=== PATIENT | female | born 1935 | race Asian ===

== ENCOUNTER 2021-07-29 14:12 | Inpatient (IN) | payer MEDICARE, OTHER ==
[~2021-07-29] VITALS: Ht 162.6 cm; Wt 39.0 kg
[2021-07-29 18:50] VITALS: BP 110/60
[2021-07-29] MEDS ORDERED: QUEtiapine FUMARATE 25 MG TABLET PO SCH (21:00)
[2021-07-29 21:06] VITALS: BP 127/70
[2021-07-29] MEDS: METOPROLOL TARTRATE 50 MG TABLET PO SCH (21:13)
[2021-07-29] MEDS: MIRTAZAPINE 15 MG TABLET PO SCH (21:13)
[2021-07-29] MEDS: DORZOLAMIDE/TIMOLOL 2-0.5% [22.3-6.8MG/ML] 10 ML OPHTHALMIC SOLUTION OU SCH (21:13)
[2021-07-29] MEDS: ATORVASTATIN CALCIUM 40 MG TABLET PO SCH (21:13)
[2021-07-29] MEDS: DOCUSATE SODIUM 100 MG CAPSULE PO SCH (21:13)
[2021-07-29] MEDS: SENNA 187 MG TABLET PO SCH (21:13)
[2021-07-29] MEDS: ETHYL ALCOHOL 62% ANTISEPTIC NASAL INHALANT 0.6 ML AMPUL NASAL SCH (21:14)
[2021-07-29] MEDS: DOXYCYCLINE HYCLATE 100 MG TABLET PO SCH (21:14)
[2021-07-29] MEDS: BRIMONIDINE/TIMOLOL 0.2-0.5% 5 ML OPHTHALMIC SOLUTION OU SCH (21:21)
[2021-07-29 23:30] VITALS: BP 93/61
[2021-07-30 07:20] LABS: BASOPHILS % (AUTO) 0.8 % (0.0-2.0); EOSINOPHILS % (AUTO) 9.1 % (1.0-6.0); HEMATOCRIT 42.2 % (36-46); LYMPHOCYTES # (AUTO) 0.7 K/uL (1.0-4.8); LYMPHOCYTES % (AUTO) 9.6 % (22.0-44.0); MEAN CORPUSCULAR HEMOGLOBIN 29.2 pg (26.0-34.0); MEAN CORPUSCULAR HGB CONC 33.2 G/dL (31.0-37.0); MEAN CORPUSCULAR VOLUME 88 fL (80-100); MONOCYTES # (AUTO) 0.6 K/uL (0.1-1.0); MONOCYTES % (AUTO) 8.4 % (2.0-9.0); NEUTROPHILS # (AUTO) 5.1 K/uL (1.8-7.7); NEUTROPHILS % (AUTO) 72.1 % (40.0-70.0); PLATELET COUNT (AUTO) 357 K/uL (150-450); RED BLOOD CELL COUNT(AUTO) 4.79 MIL/uL (4.00-5.20)
[2021-07-30 07:31] LABS: ALBUMIN 2.8 g/dL (3.4-5.0); BILIRUBIN,TOTAL 0.7 mg/dL (0.1-1.0); CREATININE 1.16 mg/dL (0.60-1.30); POTASSIUM 4.4 mmol/L (3.5-5.1); TOTAL PROTEIN, SERUM 6.5 g/dL (6.4-8.2)
[2021-07-30] MEDS: ASPIRIN 81 MG CHEWABLE TABLET PO SCH (07:41)
[2021-07-30 08:05] VITALS: BP 103/63
[2021-07-30] MEDS: DOCUSATE SODIUM 100 MG CAPSULE PO SCH ×2 (08:33→20:14)
[2021-07-30] MEDS: DORZOLAMIDE/TIMOLOL 2-0.5% [22.3-6.8MG/ML] 10 ML OPHTHALMIC SOLUTION OU SCH ×2 (08:33→20:14)
[2021-07-30] MEDS: METOPROLOL TARTRATE 50 MG TABLET PO SCH ×2 (08:33→20:15)
[2021-07-30] MEDS: BRIMONIDINE/TIMOLOL 0.2-0.5% 5 ML OPHTHALMIC SOLUTION OU SCH ×2 (08:33→20:19)
[2021-07-30] MEDS: ETHYL ALCOHOL 62% ANTISEPTIC NASAL INHALANT 0.6 ML AMPUL NASAL SCH ×2 (08:33→20:15)
[2021-07-30] MEDS: CLOPIDOGREL BISULFATE 75 MG TABLET PO SCH (08:33)
[2021-07-30] MEDS: DOXYCYCLINE HYCLATE 100 MG TABLET PO SCH ×2 (08:34→20:15)
[2021-07-30] MEDS: AmLODIPine BESYLATE 5 MG TABLET PO SCH (08:34)
[2021-07-30] MEDS: ACETAMINOPHEN 325 MG TABLET PO PRN (11:37)
[2021-07-30 15:10] VITALS: BP 112/57
[2021-07-30 20:14] VITALS: BP 123/66
[2021-07-30] MEDS: SENNA 187 MG TABLET PO SCH (20:15)
[2021-07-30] MEDS: ATORVASTATIN CALCIUM 40 MG TABLET PO SCH (20:15)
[2021-07-30] MEDS: MIRTAZAPINE 15 MG TABLET PO SCH (20:15)
[2021-07-30] MEDS: MELATONIN 3 MG TABLET PO PRN (20:17)
[2021-07-31 00:45] VITALS: BP 134/67
[2021-07-31 08:01] VITALS: BP 139/60
[2021-07-31] MEDS: BRIMONIDINE/TIMOLOL 0.2-0.5% 5 ML OPHTHALMIC SOLUTION OU SCH ×3 (08:10→21:04)
[2021-07-31] MEDS: DORZOLAMIDE/TIMOLOL 2-0.5% [22.3-6.8MG/ML] 10 ML OPHTHALMIC SOLUTION OU SCH ×2 (08:10→20:55)
[2021-07-31] MEDS: AmLODIPine BESYLATE 5 MG TABLET PO SCH (08:10)
[2021-07-31] MEDS: DOCUSATE SODIUM 100 MG CAPSULE PO SCH ×2 (08:10→20:55)
[2021-07-31] MEDS: DOXYCYCLINE HYCLATE 100 MG TABLET PO SCH ×2 (08:10→20:55)
[2021-07-31] MEDS: ASPIRIN 81 MG CHEWABLE TABLET PO SCH (08:10)
[2021-07-31] MEDS: METOPROLOL TARTRATE 50 MG TABLET PO SCH ×2 (08:10→20:55)
[2021-07-31] MEDS: CLOPIDOGREL BISULFATE 75 MG TABLET PO SCH (08:10)
[2021-07-31] MEDS: ETHYL ALCOHOL 62% ANTISEPTIC NASAL INHALANT 0.6 ML AMPUL NASAL SCH ×2 (08:50→20:56)
[2021-07-31 16:18] VITALS: BP 131/55
[2021-07-31 20:45] VITALS: BP 119/71
[2021-07-31] MEDS: HEPARIN SODIUM,PORCINE 5,000 UNITS/ML VIAL SQ SCH (20:55)
[2021-07-31] MEDS: MIRTAZAPINE 15 MG TABLET PO SCH (20:55)
[2021-07-31] MEDS: MELATONIN 3 MG TABLET PO PRN (20:56)
[2021-07-31] MEDS: ATORVASTATIN CALCIUM 40 MG TABLET PO SCH (20:56)
[2021-07-31] MEDS: SENNA 187 MG TABLET PO SCH (20:56)
[2021-08-01 03:00] VITALS: BP 136/67
[2021-08-01 09:00] VITALS: BP 123/59
[2021-08-01] MEDS: ETHYL ALCOHOL 62% ANTISEPTIC NASAL INHALANT 0.6 ML AMPUL NASAL SCH ×2 (09:55→20:18)
[2021-08-01] MEDS: DOXYCYCLINE HYCLATE 100 MG TABLET PO SCH ×2 (09:56→20:17)
[2021-08-01] MEDS: ASPIRIN 81 MG CHEWABLE TABLET PO SCH (09:56)
[2021-08-01] MEDS: METOPROLOL TARTRATE 50 MG TABLET PO SCH ×2 (09:56→20:17)
[2021-08-01] MEDS: CLOPIDOGREL BISULFATE 75 MG TABLET PO SCH (09:56)
[2021-08-01] MEDS: AmLODIPine BESYLATE 5 MG TABLET PO SCH (09:56)
[2021-08-01] MEDS: HEPARIN SODIUM,PORCINE 5,000 UNITS/ML VIAL SQ SCH ×2 (09:57→20:17)
[2021-08-01] MEDS: DOCUSATE SODIUM 100 MG CAPSULE PO SCH ×2 (09:57→20:17)
[2021-08-01] MEDS: DORZOLAMIDE/TIMOLOL 2-0.5% [22.3-6.8MG/ML] 10 ML OPHTHALMIC SOLUTION OU SCH ×2 (10:07→20:18)
[2021-08-01] MEDS: BRIMONIDINE/TIMOLOL 0.2-0.5% 5 ML OPHTHALMIC SOLUTION OU SCH ×2 (10:07→20:18)
[2021-08-01] MEDS: MECLIZINE HCL 25 MG TABLET PO PRN (11:49)
[2021-08-01] MEDS: ACETAMINOPHEN 325 MG TABLET PO PRN (13:36)
[2021-08-01 16:30] VITALS: BP 118/63
[2021-08-01 20:10] VITALS: BP 112/64
[2021-08-01] MEDS: ATORVASTATIN CALCIUM 40 MG TABLET PO SCH (20:17)
[2021-08-01] MEDS: MIRTAZAPINE 15 MG TABLET PO SCH (20:17)
[2021-08-01] MEDS: SENNA 187 MG TABLET PO SCH (20:18)
[2021-08-02 02:00] VITALS: BP 116/67
[2021-08-02] MEDS: ASPIRIN 81 MG CHEWABLE TABLET PO SCH (08:28)
[2021-08-02] MEDS: CLOPIDOGREL BISULFATE 75 MG TABLET PO SCH (08:29)
[2021-08-02] MEDS: ETHYL ALCOHOL 62% ANTISEPTIC NASAL INHALANT 0.6 ML AMPUL NASAL SCH ×2 (08:29→20:36)
[2021-08-02] MEDS: AmLODIPine BESYLATE 5 MG TABLET PO SCH (08:29)
[2021-08-02] MEDS: DOCUSATE SODIUM 100 MG CAPSULE PO SCH ×2 (08:30→20:36)
[2021-08-02] MEDS: HEPARIN SODIUM,PORCINE 5,000 UNITS/ML VIAL SQ SCH ×2 (08:30→20:36)
[2021-08-02] MEDS: BRIMONIDINE/TIMOLOL 0.2-0.5% 5 ML OPHTHALMIC SOLUTION OU SCH ×2 (08:30→20:36)
[2021-08-02] MEDS: DORZOLAMIDE/TIMOLOL 2-0.5% [22.3-6.8MG/ML] 10 ML OPHTHALMIC SOLUTION OU SCH ×2 (08:35→20:43)
[2021-08-02] MEDS: DOXYCYCLINE HYCLATE 100 MG TABLET PO SCH ×2 (08:35→20:36)
[2021-08-02] MEDS: METOPROLOL TARTRATE 50 MG TABLET PO SCH ×2 (08:35→20:37)
[2021-08-02 09:05] VITALS: BP 133/51
[2021-08-02 15:14] VITALS: BP 127/66
[2021-08-02 20:27] VITALS: BP 129/71
[2021-08-02] MEDS: ATORVASTATIN CALCIUM 40 MG TABLET PO SCH (20:36)
[2021-08-02] MEDS: SENNA 187 MG TABLET PO SCH (20:36)
[2021-08-02] MEDS: MIRTAZAPINE 15 MG TABLET PO SCH (20:36)
[2021-08-02] MEDS: MELATONIN 3 MG TABLET PO PRN (20:37)
[2021-08-03 04:45] VITALS: BP 141/68
[2021-08-03 08:10] VITALS: BP 153/75
[2021-08-03] MEDS: ASPIRIN 81 MG CHEWABLE TABLET PO SCH (09:07)
[2021-08-03] MEDS: BRIMONIDINE/TIMOLOL 0.2-0.5% 5 ML OPHTHALMIC SOLUTION OU SCH ×2 (09:08→20:18)
[2021-08-03] MEDS: ETHYL ALCOHOL 62% ANTISEPTIC NASAL INHALANT 0.6 ML AMPUL NASAL SCH ×2 (09:08→20:17)
[2021-08-03] MEDS: DOCUSATE SODIUM 100 MG CAPSULE PO SCH ×2 (09:09→20:17)
[2021-08-03] MEDS: METOPROLOL TARTRATE 50 MG TABLET PO SCH ×2 (09:12→20:18)
[2021-08-03] MEDS: AmLODIPine BESYLATE 5 MG TABLET PO SCH (09:13)
[2021-08-03] MEDS: CLOPIDOGREL BISULFATE 75 MG TABLET PO SCH (09:14)
[2021-08-03] MEDS: MULTIVITAMINS WITH MINERALS, THERAPEUTIC TABLET PO SCH (09:15)
[2021-08-03] MEDS: DORZOLAMIDE/TIMOLOL 2-0.5% [22.3-6.8MG/ML] 10 ML OPHTHALMIC SOLUTION OU SCH ×2 (09:17→20:21)
[2021-08-03] MEDS: HEPARIN SODIUM,PORCINE 5,000 UNITS/ML VIAL SQ SCH ×2 (09:17→20:17)
[2021-08-03 10:27] LABS: MAGNESIUM 2.2 mg/dL (1.80-2.40); PHOSPHORUS 4.3 mg/dL (2.5-4.9)
[2021-08-03 15:45] VITALS: BP 141/61
[2021-08-03 20:16] VITALS: BP 155/69
[2021-08-03] MEDS: SENNA 187 MG TABLET PO SCH (20:17)
[2021-08-03] MEDS: ATORVASTATIN CALCIUM 40 MG TABLET PO SCH (20:17)
[2021-08-03] MEDS: MELATONIN 3 MG TABLET PO PRN (20:17)
[2021-08-03] MEDS: MIRTAZAPINE 15 MG TABLET PO SCH (20:17)
[2021-08-04 04:59] VITALS: BP 142/54
[2021-08-04] MEDS: DORZOLAMIDE/TIMOLOL 2-0.5% [22.3-6.8MG/ML] 10 ML OPHTHALMIC SOLUTION OU SCH ×2 (07:50→20:17)
[2021-08-04] MEDS: AmLODIPine BESYLATE 5 MG TABLET PO SCH (07:51)
[2021-08-04] MEDS: DOCUSATE SODIUM 100 MG CAPSULE PO SCH ×2 (07:51→20:17)
[2021-08-04] MEDS: METOPROLOL TARTRATE 50 MG TABLET PO SCH ×2 (07:51→20:17)
[2021-08-04] MEDS: CLOPIDOGREL BISULFATE 75 MG TABLET PO SCH (07:51)
[2021-08-04] MEDS: ETHYL ALCOHOL 62% ANTISEPTIC NASAL INHALANT 0.6 ML AMPUL NASAL SCH ×2 (07:51→20:18)
[2021-08-04] MEDS: BRIMONIDINE/TIMOLOL 0.2-0.5% 5 ML OPHTHALMIC SOLUTION OU SCH ×2 (07:51→20:23)
[2021-08-04] MEDS: ASPIRIN 81 MG CHEWABLE TABLET PO SCH (07:51)
[2021-08-04] MEDS: HEPARIN SODIUM,PORCINE 5,000 UNITS/ML VIAL SQ SCH ×2 (07:51→20:17)
[2021-08-04] MEDS: MULTIVITAMINS WITH MINERALS, THERAPEUTIC TABLET PO SCH (07:52)
[2021-08-04 08:05] VITALS: BP 142/63
[2021-08-04] MEDS: MECLIZINE HCL 25 MG TABLET PO PRN (09:09)
[2021-08-04] MEDS: ACETAMINOPHEN 325 MG TABLET PO PRN (11:51)
[2021-08-04 15:26] VITALS: BP 125/59
[2021-08-04 20:15] VITALS: BP 152/72
[2021-08-04] MEDS: SENNA 187 MG TABLET PO SCH (20:17)
[2021-08-04] MEDS: MELATONIN 3 MG TABLET PO PRN (20:18)
[2021-08-04] MEDS: ATORVASTATIN CALCIUM 40 MG TABLET PO SCH (20:18)
[2021-08-04] MEDS: MIRTAZAPINE 15 MG TABLET PO SCH (20:18)
[2021-08-04 23:11] VITALS: BP 143/68
[2021-08-05] MEDS: DOCUSATE SODIUM 100 MG CAPSULE PO SCH ×2 (08:15→21:54)
[2021-08-05] MEDS: MULTIVITAMINS WITH MINERALS, THERAPEUTIC TABLET PO SCH (08:15)
[2021-08-05] MEDS: METOPROLOL TARTRATE 50 MG TABLET PO SCH ×2 (08:15→21:55)
[2021-08-05] MEDS: ASPIRIN 81 MG CHEWABLE TABLET PO SCH (08:16)
[2021-08-05] MEDS: CLOPIDOGREL BISULFATE 75 MG TABLET PO SCH (08:16)
[2021-08-05] MEDS: AmLODIPine BESYLATE 5 MG TABLET PO SCH (08:16)
[2021-08-05] MEDS: HEPARIN SODIUM,PORCINE 5,000 UNITS/ML VIAL SQ SCH ×2 (08:16→21:55)
[2021-08-05] MEDS: DORZOLAMIDE/TIMOLOL 2-0.5% [22.3-6.8MG/ML] 10 ML OPHTHALMIC SOLUTION OU SCH ×2 (08:17→21:54)
[2021-08-05] MEDS: BRIMONIDINE/TIMOLOL 0.2-0.5% 5 ML OPHTHALMIC SOLUTION OU SCH ×2 (08:17→21:54)
[2021-08-05 09:00] VITALS: BP 143/77
[2021-08-05] MEDS: MECLIZINE HCL 25 MG TABLET PO PRN (10:04)
[2021-08-05] MEDS: ETHYL ALCOHOL 62% ANTISEPTIC NASAL INHALANT 0.6 ML AMPUL NASAL SCH ×2 (10:04→21:53)
[2021-08-05 16:30] VITALS: BP 134/74
[2021-08-05 21:00] VITALS: BP 137/72
[2021-08-05] MEDS: SENNA 187 MG TABLET PO SCH (21:54)
[2021-08-05] MEDS: MIRTAZAPINE 15 MG TABLET PO SCH (21:54)
[2021-08-05] MEDS: ATORVASTATIN CALCIUM 40 MG TABLET PO SCH (21:55)
[2021-08-05] MEDS: MELATONIN 3 MG TABLET PO PRN (21:55)
[2021-08-06] VITALS: BP 141/66
[2021-08-06] MEDS: DORZOLAMIDE/TIMOLOL 2-0.5% [22.3-6.8MG/ML] 10 ML OPHTHALMIC SOLUTION OU SCH ×2 (07:58→20:56)
[2021-08-06] MEDS: MULTIVITAMINS WITH MINERALS, THERAPEUTIC TABLET PO SCH (07:59)
[2021-08-06] MEDS: BRIMONIDINE/TIMOLOL 0.2-0.5% 5 ML OPHTHALMIC SOLUTION OU SCH ×2 (07:59→20:23)
[2021-08-06] MEDS: METOPROLOL TARTRATE 50 MG TABLET PO SCH ×2 (07:59→20:57)
[2021-08-06] MEDS: DOCUSATE SODIUM 100 MG CAPSULE PO SCH ×2 (08:00→20:57)
[2021-08-06] MEDS: ASPIRIN 81 MG CHEWABLE TABLET PO SCH (08:00)
[2021-08-06] MEDS: ETHYL ALCOHOL 62% ANTISEPTIC NASAL INHALANT 0.6 ML AMPUL NASAL SCH ×2 (08:00→20:23)
[2021-08-06] MEDS: HEPARIN SODIUM,PORCINE 5,000 UNITS/ML VIAL SQ SCH ×2 (08:00→20:57)
[2021-08-06] MEDS: AmLODIPine BESYLATE 5 MG TABLET PO SCH (08:00)
[2021-08-06 08:05] VITALS: BP 153/64
[2021-08-06] MEDS: CLOPIDOGREL BISULFATE 75 MG TABLET PO SCH (08:08)
[2021-08-06] MEDS: MECLIZINE HCL 25 MG TABLET PO PRN (09:22)
[2021-08-06 15:10] VITALS: BP 142/71
[2021-08-06] MEDS: MECLIZINE HCL 25 MG TABLET PO SCH ×2 (16:36→20:57)
[2021-08-06 20:53] VITALS: BP 115/58
[2021-08-06] MEDS: MELATONIN 3 MG TABLET PO PRN (20:57)
[2021-08-06] MEDS: SENNA 187 MG TABLET PO SCH (20:57)
[2021-08-06] MEDS: MIRTAZAPINE 15 MG TABLET PO SCH (20:57)
[2021-08-06] MEDS: ATORVASTATIN CALCIUM 40 MG TABLET PO SCH (20:57)
[2021-08-07] VITALS: BP 128/48
[2021-08-07 06:00] VITALS: BP 103/64
[2021-08-07] MEDS: HEPARIN SODIUM,PORCINE 5,000 UNITS/ML VIAL SQ SCH ×2 (07:58→21:03)
[2021-08-07] MEDS: DOCUSATE SODIUM 100 MG CAPSULE PO SCH ×2 (07:58→21:03)
[2021-08-07] MEDS: AmLODIPine BESYLATE 5 MG TABLET PO SCH (07:58)
[2021-08-07] MEDS: METOPROLOL TARTRATE 50 MG TABLET PO SCH ×2 (07:58→21:03)
[2021-08-07] MEDS: MULTIVITAMINS WITH MINERALS, THERAPEUTIC TABLET PO SCH (07:58)
[2021-08-07] MEDS: MECLIZINE HCL 25 MG TABLET PO SCH ×3 (07:58→21:03)
[2021-08-07] MEDS: ASPIRIN 81 MG CHEWABLE TABLET PO SCH (07:59)
[2021-08-07] MEDS: BRIMONIDINE/TIMOLOL 0.2-0.5% 5 ML OPHTHALMIC SOLUTION OU SCH ×2 (07:59→21:10)
[2021-08-07] MEDS: CLOPIDOGREL BISULFATE 75 MG TABLET PO SCH (07:59)
[2021-08-07] MEDS: DORZOLAMIDE/TIMOLOL 2-0.5% [22.3-6.8MG/ML] 10 ML OPHTHALMIC SOLUTION OU SCH ×2 (07:59→21:03)
[2021-08-07] MEDS: ETHYL ALCOHOL 62% ANTISEPTIC NASAL INHALANT 0.6 ML AMPUL NASAL SCH ×2 (07:59→21:03)
[2021-08-07 08:11] VITALS: BP 121/56
[2021-08-07 11:30] VITALS: BP 118/62
[2021-08-07 16:02] VITALS: BP 144/63
[2021-08-07] MEDS: MIRTAZAPINE 15 MG TABLET PO SCH (21:03)
[2021-08-07] MEDS: ATORVASTATIN CALCIUM 40 MG TABLET PO SCH (21:03)
[2021-08-07] MEDS: SENNA 187 MG TABLET PO SCH (21:03)
[2021-08-07] MEDS: MELATONIN 3 MG TABLET PO PRN (21:03)
[2021-08-07 21:11] VITALS: BP_SYST 142; BP_DIAS 68; BP_DIAS 70
[2021-08-08 05:20] VITALS: BP 115/49
[2021-08-08] MEDS: ETHYL ALCOHOL 62% ANTISEPTIC NASAL INHALANT 0.6 ML AMPUL NASAL SCH (07:54)
[2021-08-08] MEDS: HEPARIN SODIUM,PORCINE 5,000 UNITS/ML VIAL SQ SCH (07:54)
[2021-08-08] MEDS: DOCUSATE SODIUM 100 MG CAPSULE PO SCH (07:54)
[2021-08-08] MEDS: DORZOLAMIDE/TIMOLOL 2-0.5% [22.3-6.8MG/ML] 10 ML OPHTHALMIC SOLUTION OU SCH (07:54)
[2021-08-08] MEDS: BRIMONIDINE/TIMOLOL 0.2-0.5% 5 ML OPHTHALMIC SOLUTION OU SCH (07:54)
[2021-08-08] MEDS: MECLIZINE HCL 25 MG TABLET PO SCH (07:55)
[2021-08-08] MEDS: MULTIVITAMINS WITH MINERALS, THERAPEUTIC TABLET PO SCH (07:55)
[2021-08-08] MEDS: METOPROLOL TARTRATE 50 MG TABLET PO SCH (07:55)
[2021-08-08] MEDS: CLOPIDOGREL BISULFATE 75 MG TABLET PO SCH (07:55)
[2021-08-08] MEDS: ASPIRIN 81 MG CHEWABLE TABLET PO SCH (07:55)
[2021-08-08] MEDS: AmLODIPine BESYLATE 5 MG TABLET PO SCH (07:55)
[2021-08-08 08:02] VITALS: BP 132/55
[2021-08-08 15:30] VITALS: BP 143/60
== END 2021-08-08 15:44 | DRG 64 ==
LOC: 2WR 18:00
PROVIDERS: ADMIT Physical Medicine & Rehabilitation; ATTEND Physical Medicine & Rehabilitation
DX: I63.9 Cerebral infarction, unspecified (principal); J69.0 Pneumonitis due to inhalation of food and vomit; G93.40 Encephalopathy, unspecified; E44.1 Mild protein-calorie malnutrition; K59.2 Neurogenic bowel, not elsewhere classified; Z68.1 Body mass index [BMI] 19.9 or less, adult; Y95 Nosocomial condition; E78.00 Pure hypercholesterolemia, unspecified; E78.5 Hyperlipidemia, unspecified; F03.90 Unspecified dementia, unspecified severity, without behavioral disturbance, psychotic disturbance, mood disturbance, and anxiety; G47.00 Insomnia, unspecified; I10 Essential (primary) hypertension; K59.00 Constipation, unspecified; N31.9 Neuromuscular dysfunction of bladder, unspecified
CPT/HCPCS: 80053; 83735; 84100; 85025; 87081; 92507; 92523; 93970; 97110; 97112; 97116; 97163; 97167; 97530; 97535; 99366; J1644